=== PATIENT | male | born 1960 | race Two or more races ===

== ENCOUNTER 2020-03-31 18:51 | Emergency (ER) | payer SELFPAY ==
[~2020-03-31] VITALS: Ht 162.6 cm; Wt 68.5 kg
[2020-03-31 19:29] LABS: BASOPHILS % (AUTO) 1 % (0-1); EOSINOPHILS % (AUTO) 1 % (1-7); LYMPHOCYTES % (AUTO) 25 % (22-44); MEAN CORPUSCULAR HEMOGLOBIN 30.5 pg (27.5-34.5); MEAN PLATELET VOLUME 7.9 fL (7.4-10.4); MONOCYTES % (AUTO) 9 % (2-9); NEUTROPHILS % (AUTO) 64 % (42-75); PLATELET COUNT 236 x10^3/uL (130-400); RED BLOOD COUNT 5.08 x10^6/uL (4.38-5.82); RED CELL DISTRIBUTION WIDTH 13.2 % (9.4-14.8)
[2020-03-31 19:31] LABS: MD NO
[2020-03-31 19:39] LABS: ALBUMIN 3.6 g/dL (3.4-5.0); ANION GAP 3 mmol/L (5-15); CALCIUM 8.8 mg/dL (8.5-10.1); CHLORIDE 106 mmol/L (98-107)
[2020-03-31 19:44] LABS: SALICYLATE LEVEL < 1.7 mg/dL (2.8-20.0)
--- NOTE | 2020-03-31 20:06 | NUR ---
PT RESTING IN VIEW OF NURSES STATION WITH NO COMPLAINTS
[2020-03-31 20:16] LABS: AMPHETAMINE SCREEN, URINE Positive (Negative); BARBITURATE SCREEN, URINE Negative (Negative); BENZODIAZEPINE SCREEN, URINE Positive (Negative); CANNABINOID SCREEN, URINE Positive (Negative); COCAINE SCREEN, URINE Negative (Negative); METHADONE SCREEN, URINE Negative (Negative); OPIATE SCREEN, URINE Negative (Negative)
--- NOTE | 2020-03-31 20:58 | NUR ---
PT RESTING IN VIEW OF NURSES STATION, NO COMPLAINTS, AWAITING TELE PSYCH CONSULT
--- NOTE | 2020-03-31 22:29 | NUR ---
PT MOVED TO ROOM 1 AT THIS TIME FOR TELEPSYCH. PT STS WANTS TO SHOWER AND GET NEW CLOTHES HE HAS BEEN WEARING THE SAME OUTFIT FOR 4 DAYS AND HAS BEEN WALKING A LOT. PT CHANGING INTO GOWN WITH ASSIST OF [employer] AT THIS TIME. EDUCATED ON NEED FOR URINE SAMPLE.
--- NOTE | 2020-03-31 22:55 | NUR ---
PT UP TO RESTROOM
--- NOTE | 2020-03-31 23:04 | NUR ---
PT RESTING ON SOPHIA OTERO, NO NEEDS A THIS TIME, BELONGINGS LABELED AND PLACED IN LOCKER
--- NOTE | 2020-03-31 23:29 | NUR ---
PT PROVIDED WITH BLANKET REQ. AWAITING TELEPSYCH
--- NOTE | 2020-04-01 00:19 | NUR ---
SPOKE WITH TELE PSYCH, PT TO BE PLACED ON A HOLD. ERP TO BE UPDATED AT THIS TIME
--- NOTE | 2020-04-01 00:33 | NUR ---
PT PROVIDED WITH SNACKS AND WATER AT REQ
[2020-04-01] MEDS ORDERED: DEPAKOTE PO (00:35)
[2020-04-01] MEDS ORDERED: AMBIEN (00:35)
[2020-04-01] MEDS ORDERED: SEROQUEL PO (00:35)
--- NOTE | 2020-04-01 00:35 | NUR ---
PT REPORTS TAKING SEROQUEL, AMBIEN AND DEPAKOTE BUT STOPPED ABOUT TWO MONTHS AGO. PT DOES NOT KNOW DOSES
[2020-04-01] MEDS ORDERED: DIVALPROEX 500 MG TAB.ER.24H PO ONE (01:25)
[2020-04-01] MEDS ORDERED: HALOPERIDOL 5 MG/ML ONE (01:28)
[2020-04-01] MEDS ORDERED: DIVALPROEX 500 MG TAB.ER.24H ONE (01:28)
[2020-04-01] MEDS ORDERED: LORazepam 2 MG/ML, 1ML ONE (01:29)
[2020-04-01] MEDS ORDERED: NICOTINE 21 MG/24 HR PATCH.TD24 ONE (01:29)
[2020-04-01] MEDS ORDERED: QUETIAPINE 25MG TABLET ONE (01:29)
[2020-04-01] MEDS ORDERED: HALOPERIDOL 5 MG/ML IM ONE (01:30)
[2020-04-01] MEDS ORDERED: NICOTINE 21 MG/24 HR PATCH.TD24 TD ONE (01:30)
[2020-04-01] MEDS ORDERED: QUETIAPINE 25MG TABLET PO ONE (01:30)
[2020-04-01] MEDS ORDERED: LORazepam 2 MG/ML, 1ML IM ONE (01:30)
--- NOTE | 2020-04-01 01:40 | NUR ---
PT MEDICATED PER MAR WITH HOME MEDS
--- NOTE | 2020-04-01 01:42 | NUR ---
PT DOES NOT WANT NICOTINE PATCH AT THIS TIME STS IT GIVES HIM A HEADACHE
--- NOTE | 2020-04-01 02:45 | NUR ---
PT NOW SLEEPING ON GURNEY NO NEEDS AT THIS TIME RESP EVEN AND UNLABORED. SITTER IN VIEW FOR SAFETY.
--- NOTE | 2020-04-01 03:59 | NUR ---
PT RESTING ON [facility] SITTER IN SIGHT NO NEEDS AT THIS TIME
--- NOTE | 2020-04-01 05:00 | NUR ---
PT RESTING ON SOPHIA COPE IN VIEW
--- NOTE | 2020-04-01 06:00 | NUR ---
PT RESTING ON SOPHIA COPE IN VIEW
--- NOTE | 2020-04-01 07:01 | NUR ---
Report from Johana NAVARRO. Pt resting in bed with eyes closed, resp even and unlabored, NADN. Room remains secured, sitter within eyesight of pt, all safety measures observed. Legal Hold visualized in pt chart.
--- NOTE | 2020-04-01 08:13 | NUR ---
Pt continues resting in bed with eyes closed, resp even and unlabored, NADN. Room remains secured, sitter within eyesight of pt, all safety measures observed.
--- NOTE | 2020-04-01 08:30 | NUR ---
pt ate 100% of bk, no change in condition
--- NOTE | 2020-04-01 08:45 | NUR ---
pt ate 100% breakfast. no change in condition
--- NOTE | 2020-04-01 09:50 | NUR ---
Chart faxed to [facility]
--- NOTE | 2020-04-01 10:03 | NUR ---
pt resting in bed, no change
--- NOTE | 2020-04-01 10:04 | NUR ---
pt resting in bed, no change
--- NOTE | 2020-04-01 10:28 | NUR ---
Pt resting in bed, NADN.
--- NOTE | 2020-04-01 10:58 | NUR ---
Meal tray ordered for pt. Pt continues resting in bed with eyes closed, resp even and unlabored, NADN. Room remains secured, sitter within eyesight of pt, all safety measures observed.
--- NOTE | 2020-04-01 12:21 | NUR ---
BREAK RN FOR PRIMARY RN'S COTY. KAIT BOURGEOIS AT BEDSIDE FOR EVALUATION. PT RESTING IN POSITION OF COMFORT. DENIES ANY PAIN AND NEED TO USE RESTROOM. ALL NEEDS MET AND ADDRESSED. FALL PRECAUTIONS IN PLACE. SITTER AT DOOR FOR CONTINUOUS SAFETY OBSERVATION. SAFE AND SECURE ENVIRONMENT PROVIDED. GARAGE DOORS DOWN. ALL BELONINGS REMAIN LOCKED IN CABINET FOR SAFETY.
--- NOTE | 2020-04-01 13:07 | NUR ---
REPORT AND TRANSFER OF CARE BACK TO PRIMARY RN'S YADI AND HI
--- NOTE | 2020-04-01 13:08 | NUR ---
Pt cleared for dc by Gloria KELLOGG. All pt belongings returned to pt. Pt advised that he needs to get dressed for discharge. Pt verbalizes understanding. Awaiting dc paperwork.
[2020-04-01 13:45] VITALS: BP 115/62
== END 2020-04-01 13:53 | disposition home or self-care (01) ==
LOC: ED 04-01 00:56
DX: F32.1 Major depressive disorder, single episode, moderate (principal); I10 Essential (primary) hypertension; F17.210 Nicotine dependence, cigarettes, uncomplicated; Z72.9 Problem related to lifestyle, unspecified; Z91.14 Patient's other noncompliance with medication regimen
CPT/HCPCS: 36415; 80048; 80307; 82040; 85025; 96372; 99284; 99406; J1630; J2060

== ENCOUNTER 2020-11-26 16:17 | Inpatient (IN) | payer MEDICAID ==
[~2020-11-26] VITALS: Ht 165.1 cm; Wt 70.4 kg
[~2020-11-26 16:17] MED LIST: AMBIEN; DEPAKOTE PO; SEROQUEL PO
--- NOTE | 2020-11-26 16:27 | NUR ---
TASK RN: NAVEED EMS FROM [facility] WITH DX OF PNEUMONIA. PT WAS A HOLD IN ED FOR PSYCH PLACEMENT. NO LEGAL HOLD ON CHART. DEVELOPED FEVER TODAY. PT HYPOXIC ON RA AND MOSTLY DROWSY. ARROUSABLE TO VOICE AND LIGHT PHYSICAL STIM. HYPOXIC ON RA, 87% WHICH IMPROVES W 2L O2 BY NC. HX HIV, NON-COMPLIANT WITH RX. NO THRUSH OR NUCCAL RIGIDITY NOTED. GIVEN ROCEPHIN, AZITHROMYCIN, AND BACTRIM BERRY PICKER. BP/SPO2/ECG MONITORING IN PLACE. SINUS TACH ON MONITOR. AFEBRILE UPON ARRIVAL.
[2020-11-26] MEDS ORDERED: SODIUM CHLORIDE FLUSH 10ML SYR IVF ONE (16:30)
[2020-11-26] MEDS ORDERED: methylPREDNISolone SOD SUCC 125 MG/2 ML IVPush ONE (16:34)
[2020-11-26] MEDS ORDERED: methylPREDNISolone SOD SUCC 125 MG/2 ML ONE (16:42)
--- NOTE | 2020-11-26 16:48 | NUR ---
REC REPORT PT SLEEPING AROUSES TO VERBAL IV INFUSING WELL MEDS GIVEN PER ORDERS
--- NOTE | 2020-11-26 16:51 | NUR ---
TASK RN: SECOND PIV ESTABLISHED. LABS/BCX1 DRAWN W PIV START.
[2020-11-26 17:09] LABS: BASOPHILS % (AUTO) 1 % (0-1); EOSINOPHILS % (AUTO) 1 % (1-7); LYMPHOCYTES % (AUTO) 29 % (22-44); MEAN CORPUSCULAR HEMOGLOBIN 30.4 pg (27.5-34.5); MEAN CORPUSCULAR HGB CONC 35.1 g/dL (33.2-36.2); MEAN PLATELET VOLUME 8.4 fL (7.4-10.4); MONOCYTES % (AUTO) 9 % (2-9); NEUTROPHILS % (AUTO) 60 % (42-75); PLATELET COUNT 195 x10^3/uL (130-400); RED BLOOD COUNT 4.51 x10^6/uL (4.38-5.82)
[2020-11-26 17:21] LABS: ALANINE AMINOTRANSFERASE 22 U/L (12-78); ALBUMIN 2.7 g/dL (3.4-5.0); ANION GAP 6 mmol/L (5-15); CALCIUM 8.1 mg/dL (8.5-10.1); CHLORIDE 108 mmol/L (98-107); CREATININE 0.81 mg/dL (0.7-1.3)
[2020-11-26 17:23] LABS: ALKALINE PHOSPHATASE 79 U/L (45-117); BILIRUBIN,TOTAL 0.6 mg/dL (0.2-1.0); TOTAL PROTEIN 7.3 g/dL (6.4-8.2)
[2020-11-26] MEDS ORDERED: ONDANSETRON ODT 4 MG PO PRN (18:30)
[2020-11-26] MEDS ORDERED: ACETAMINOPHEN 325 MG TABLET PO PRN (18:30)
[2020-11-26] MEDS ORDERED: BISACODYL 10 MG SUPP PR PRN (18:30)
[2020-11-26] MEDS ORDERED: POLYETHYLENE GLYCOL 17 GM PACKET PO PRN (18:30)
[2020-11-26 18:41] VITALS: BP_SYST 109; BP_DIAS 7; BP_DIAS 70
[2020-11-26] MEDS: SULFAMETH./TRIMETHOPRIM 20 ML in DEXTROSE 5% 500 ML IV SCH (19:50)
[2020-11-26] MEDS: HEPARIN 5,000 UNITS/ML, 1ML SQ SCH (19:50)
[2020-11-26] MEDS: SODIUM CHLORIDE 0.9% 1,000 ML IV SCH (19:50)
[2020-11-27 00:19] VITALS: BP 105/70
[2020-11-27] MEDS: SULFAMETH./TRIMETHOPRIM 20 ML in DEXTROSE 5% 500 ML IV SCH ×3 (02:17→18:49)
[2020-11-27] MEDS: HEPARIN 5,000 UNITS/ML, 1ML SQ SCH ×3 (04:04→21:21)
[2020-11-27 06:20] LABS: BASOPHILS % (AUTO) 0 % (0-1); EOSINOPHILS % (AUTO) 0 % (1-7); LYMPHOCYTES % (AUTO) 27 % (22-44); MEAN CORPUSCULAR HEMOGLOBIN 30.5 pg (27.5-34.5); MEAN CORPUSCULAR HGB CONC 34.8 g/dL (33.2-36.2); MEAN PLATELET VOLUME 8.5 fL (7.4-10.4); MONOCYTES % (AUTO) 5 % (2-9); NEUTROPHILS % (AUTO) 67 % (42-75); PLATELET COUNT 195 x10^3/uL (130-400); RED BLOOD COUNT 4.29 x10^6/uL (4.38-5.82); RED CELL DISTRIBUTION WIDTH 14.2 % (9.4-14.8)
[2020-11-27 06:23] LABS: ANION GAP 6 mmol/L (5-15); CALCIUM 8.2 mg/dL (8.5-10.1); CHLORIDE 109 mmol/L (98-107); CREATININE 0.91 mg/dL (0.7-1.3)
[2020-11-27 08:04] VITALS: BP 116/76
[2020-11-27] MEDS: SENNA/DOCUSATE TABLET PO SCH (09:37)
[2020-11-27 09:44] LABS: FIO2 ROOM AIR %
[2020-11-27 10:03] LABS: C-REACTIVE PROTEIN, QUANT 2.4 mg/dL (0.02-0.49)
[2020-11-27] MEDS ORDERED: CEFTRIAXONE 1,000 MG in DEXTROSE 5% 50 ML IVPB SCH (13:30)
[2020-11-27 14:10] VITALS: BP 109/65
[2020-11-27] MEDS: CEFTRIAXONE 2 GM in DEXTROSE 5% 50 ML IVPB SCH (14:27)
[2020-11-27] MEDS: SODIUM CHLORIDE 0.9% 1,000 ML IV SCH (14:34)
[2020-11-27] MEDS: AZITHROMYCIN 500 MG in SODIUM CHLORIDE 0.9% 250 ML IV SCH (15:58)
[2020-11-27 19:35] VITALS: BP 100/52
[2020-11-27] MEDS: INSULIN LISPRO 100 UNITS/ML, PEN SQ-INSULIN SCH (21:21)
[2020-11-27] MEDS ORDERED: ALUMINUM/MAG/SIMETHICONE 30 ML UDC PO PRN (21:30)
[2020-11-27] MEDS: ZOLPIDEM 5MG TABLET PO PRN (21:45)
[2020-11-28] MEDS ORDERED: OMEPRAZOLE 20 MG CAPSULE.DR PO ONE (01:00)
[2020-11-28] MEDS: SULFAMETH./TRIMETHOPRIM 20 ML in DEXTROSE 5% 500 ML IV SCH ×4 (01:16→21:04)
[2020-11-28] MEDS: HEPARIN 5,000 UNITS/ML, 1ML SQ SCH ×3 (05:03→22:00)
[2020-11-28 06:29] LABS: BASOPHILS % (AUTO) 1 % (0-1); EOSINOPHILS % (AUTO) 2 % (1-7); LYMPHOCYTES % (AUTO) 43 % (22-44); MEAN CORPUSCULAR HEMOGLOBIN 30.2 pg (27.5-34.5); MEAN CORPUSCULAR HGB CONC 34.1 g/dL (33.2-36.2); MEAN PLATELET VOLUME 7.8 fL (7.4-10.4); MONOCYTES % (AUTO) 11 % (2-9); NEUTROPHILS % (AUTO) 44 % (42-75); PLATELET COUNT 194 x10^3/uL (130-400); RED BLOOD COUNT 4.31 x10^6/uL (4.38-5.82)
[2020-11-28 06:35] LABS: ALANINE AMINOTRANSFERASE 26 U/L (12-78); ALBUMIN 2.6 g/dL (3.4-5.0); ANION GAP 5 mmol/L (5-15); CALCIUM 7.9 mg/dL (8.5-10.1); CHLORIDE 113 mmol/L (98-107)
[2020-11-28 06:37] LABS: ALKALINE PHOSPHATASE 65 U/L (45-117); BILIRUBIN,TOTAL 0.2 mg/dL (0.2-1.0); TOTAL PROTEIN 6.7 g/dL (6.4-8.2)
[2020-11-28] MEDS: INSULIN LISPRO 100 UNITS/ML, PEN SQ-INSULIN SCH ×4 (07:00→20:18)
[2020-11-28 07:33] VITALS: BP 112/67
[2020-11-28] MEDS: SENNA/DOCUSATE TABLET PO SCH (07:46)
[2020-11-28] MEDS: CEFTRIAXONE 2 GM in DEXTROSE 5% 50 ML IVPB SCH (10:06)
[2020-11-28 15:12] VITALS: BP 112/70
[2020-11-28] MEDS: AZITHROMYCIN 500 MG in SODIUM CHLORIDE 0.9% 250 ML IV SCH (16:13)
[2020-11-28] MEDS: SODIUM CHLORIDE 0.9% 1,000 ML IV SCH (16:15)
[2020-11-28 19:55] VITALS: BP 120/81
[2020-11-28] MEDS: DIVALPROEX 500 MG TAB.ER.24H PO SCH (20:41)
[2020-11-28] MEDS: QUETIAPINE 100MG TABLET PO SCH (20:41)
[2020-11-28] MEDS: ZOLPIDEM 5MG TABLET PO PRN (20:44)
[2020-11-29] MEDS: SULFAMETH./TRIMETHOPRIM 20 ML in DEXTROSE 5% 500 ML IV SCH ×4 (03:13→22:26)
[2020-11-29 03:36] VITALS: BP 111/76
[2020-11-29] MEDS: HEPARIN 5,000 UNITS/ML, 1ML SQ SCH ×3 (06:20→20:09)
[2020-11-29] MEDS: OMEPRAZOLE 20 MG CAPSULE.DR PO SCH (06:25)
[2020-11-29] MEDS: INSULIN LISPRO 100 UNITS/ML, PEN SQ-INSULIN SCH ×4 (07:00→20:06)
[2020-11-29 07:23] VITALS: BP 104/70
[2020-11-29] MEDS: SENNA/DOCUSATE TABLET PO SCH (08:48)
[2020-11-29 08:54] LABS: BASOPHILS % (AUTO) 1 % (0-1); EOSINOPHILS % (AUTO) 3 % (1-7); LYMPHOCYTES % (AUTO) 45 % (22-44); MEAN CORPUSCULAR HEMOGLOBIN 30.3 pg (27.5-34.5); MEAN CORPUSCULAR HGB CONC 34.5 g/dL (33.2-36.2); MEAN PLATELET VOLUME 7.9 fL (7.4-10.4); MONOCYTES % (AUTO) 12 % (2-9); NEUTROPHILS % (AUTO) 40 % (42-75); PLATELET COUNT 208 x10^3/uL (130-400); RED BLOOD COUNT 4.47 x10^6/uL (4.38-5.82); RED CELL DISTRIBUTION WIDTH 13.9 % (9.4-14.8)
[2020-11-29 09:05] LABS: ANION GAP 5 mmol/L (5-15); CALCIUM 8.5 mg/dL (8.5-10.1); CHLORIDE 105 mmol/L (98-107); CREATININE 0.94 mg/dL (0.7-1.3)
[2020-11-29] MEDS: CEFTRIAXONE 2 GM in DEXTROSE 5% 50 ML IVPB SCH (09:36)
[2020-11-29 12:58] VITALS: BP 105/66
[2020-11-29] MEDS: AZITHROMYCIN 500 MG in SODIUM CHLORIDE 0.9% 250 ML IV SCH (17:47)
[2020-11-29] MEDS: DIVALPROEX 500 MG TAB.ER.24H PO SCH (20:06)
[2020-11-29] MEDS: QUETIAPINE 100MG TABLET PO SCH (20:06)
[2020-11-29] MEDS: ZOLPIDEM 5MG TABLET PO PRN (20:09)
[2020-11-29 20:39] VITALS: BP 118/68
[2020-11-29] MEDS: SODIUM CHLORIDE 0.9% 1,000 ML IV SCH (22:26)
[2020-11-30] MEDS: SULFAMETH./TRIMETHOPRIM 20 ML in DEXTROSE 5% 500 ML IV SCH ×2 (04:45→10:19)
[2020-11-30] MEDS: HEPARIN 5,000 UNITS/ML, 1ML SQ SCH ×3 (04:46→22:00)
[2020-11-30] MEDS: OMEPRAZOLE 20 MG CAPSULE.DR PO SCH (04:46)
[2020-11-30 06:58] VITALS: BP 110/65
[2020-11-30] MEDS: INSULIN LISPRO 100 UNITS/ML, PEN SQ-INSULIN SCH ×4 (07:34→20:25)
[2020-11-30] MEDS: SENNA/DOCUSATE TABLET PO SCH (08:45)
[2020-11-30] MEDS: CEFTRIAXONE 2 GM in DEXTROSE 5% 50 ML IVPB SCH (08:45)
[2020-11-30 12:04] VITALS: BP 116/68
[2020-11-30] MEDS ORDERED: METF500T17 PO (13:49)
[2020-11-30] MEDS: AZITHROMYCIN 500 MG in SODIUM CHLORIDE 0.9% 250 ML IV SCH (15:56)
[2020-11-30] MEDS ORDERED: CALCIUM CARBONATE 500 MG TAB.CHEW PO PRN (16:00)
[2020-11-30] MEDS: SODIUM CHLORIDE 0.9% 1,000 ML IV SCH (17:40)
[2020-11-30 19:55] VITALS: BP 123/82
[2020-11-30] MEDS: DIVALPROEX 500 MG TAB.ER.24H PO SCH (20:23)
[2020-11-30] MEDS: QUETIAPINE 100MG TABLET PO SCH (20:23)
[2020-11-30] MEDS: ZOLPIDEM 5MG TABLET PO PRN (20:24)
[2020-12-01] MEDS: HEPARIN 5,000 UNITS/ML, 1ML SQ SCH (05:30)
[2020-12-01] MEDS: OMEPRAZOLE 20 MG CAPSULE.DR PO SCH ×2 (05:31→05:43)
[2020-12-01] MEDS: INSULIN LISPRO 100 UNITS/ML, PEN SQ-INSULIN SCH (07:22)
[2020-12-01 08:18] VITALS: BP 106/71
[2020-12-01] MEDS: CEFTRIAXONE 2 GM in DEXTROSE 5% 50 ML IVPB SCH (08:27)
[2020-12-01] MEDS: SENNA/DOCUSATE TABLET PO SCH (08:27)
== END 2020-12-01 09:49 | disposition left against medical advice (07) | DRG 139 ==
LOC: ED 17:20 → 3N 17:35
PROVIDERS: ADMIT Internal Medicine; ATTEND Family Medicine
DX: J18.1 Lobar pneumonia, unspecified organism (principal); R45.851 Suicidal ideations; E11.9 Type 2 diabetes mellitus without complications; F15.10 Other stimulant abuse, uncomplicated; J15.9 Unspecified bacterial pneumonia; Z21 Asymptomatic human immunodeficiency virus [HIV] infection status; F17.210 Nicotine dependence, cigarettes, uncomplicated; F31.0 Bipolar disorder, current episode hypomanic; Z79.4 Long term (current) use of insulin; Z79.899 Other long term (current) drug therapy; Z91.14 Patient's other noncompliance with medication regimen; Z91.19 Patient's noncompliance with other medical treatment and regimen; Z88.6 Allergy status to analgesic agent; K46.9 Unspecified abdominal hernia without obstruction or gangrene; Z20.822 Contact with and (suspected) exposure to COVID-19; Z53.29 Procedure and treatment not carried out because of patient's decision for other reasons
CPT/HCPCS: 36415; 36600; 70450; 71045; 71250; 80048; 80053; 82803; 82962; 83605; 83615; 84145; 85025; 85651; 86140; 86361; 86631; 86632; 86635; 86738; 87040; 87070; 87205; 87449; 87486; 87536; 87581; 87633; 87798; 93005; 96374; 99291; G0378; J0456; J0696; J1644; U0005; J1815; J2930; J7030; J7050; J7060; U0003

== ENCOUNTER 2020-12-03 15:24 | Emergency (ER) | payer MEDICAID ==
[~2020-12-03] VITALS: Ht 162.6 cm; Wt 74.0 kg
[~2020-12-03 15:24] MED LIST changes: +METF500T17 PO
[2020-12-03 15:49] VITALS: BP 151/100
--- NOTE | 2020-12-03 15:52 | NUR ---
NAVEED [facility] for SI. Plan to hang self because people are following him. Hx of HIV, DM and HTN. Recently admitted for PNA after coming to the hospital for SI. Left AMA. Pt talks of plans for Saturday when his HIV med will be available and he has a "ticket home to [place]. Pt turned on TV in the middle of MD Iglesias's eval. NADN. Sitter at bedside. To be seen by psych VALDEZ.
[2020-12-03 16:01] LABS: MICROSCOPIC AUTO
--- NOTE | 2020-12-03 16:02 | NUR ---
TASK RN. PT BIB [facility]. STATES SI WITH A PLAN, STATES WILL HANG HIMSELF. PT IS CURRENTLY CALM AND COOPERATIVE. PT TO RM 38, ROOM SECUED PROPERLY. PT PLACED IN GOWN ONLY AND ALL BELONGINGS LOCKED FOR SAFETY. SITTER AT BEDSIDE. URINE COLLECTED, SENT TO LAB. REPORT TO GUSTAVO NAVARRO.
[2020-12-03 16:14] LABS: AMPHETAMINE SCREEN, URINE Positive (Negative); BARBITURATE SCREEN, URINE Negative (Negative); CANNABINOID SCREEN, URINE Positive (Negative); COCAINE SCREEN, URINE Negative (Negative); METHADONE SCREEN, URINE Negative (Negative); OPIATE SCREEN, URINE Negative (Negative)
[2020-12-03 16:15] LABS: BENZODIAZEPINE SCREEN, URINE Positive (Negative)
[2020-12-03 16:33] LABS: BASOPHILS % (AUTO) 1 % (0-1); EOSINOPHILS % (AUTO) 0 % (1-7); LYMPHOCYTES % (AUTO) 19 % (22-44); MEAN CORPUSCULAR HEMOGLOBIN 30.2 pg (27.5-34.5); MEAN CORPUSCULAR HGB CONC 33.8 g/dL (33.2-36.2); MEAN PLATELET VOLUME 7.9 fL (7.4-10.4); MONOCYTES % (AUTO) 8 % (2-9); NEUTROPHILS % (AUTO) 72 % (42-75); PLATELET COUNT 256 x10^3/uL (130-400); RED BLOOD COUNT 5.02 x10^6/uL (4.38-5.82); RED CELL DISTRIBUTION WIDTH 14.2 % (9.4-14.8)
[2020-12-03 16:43] LABS: ALANINE AMINOTRANSFERASE 45 U/L (12-78); ALBUMIN 3.8 g/dL (3.4-5.0); ANION GAP 6 mmol/L (5-15); CALCIUM 9.3 mg/dL (8.5-10.1); CHLORIDE 105 mmol/L (98-107)
[2020-12-03 16:45] LABS: SALICYLATE LEVEL < 1.7 mg/dL (2.8-20.0)
[2020-12-03 16:46] LABS: ALKALINE PHOSPHATASE 103 U/L (45-117); CREATININE 1.13 mg/dL (0.7-1.3); TOTAL PROTEIN 8.8 g/dL (6.4-8.2)
[2020-12-03] MEDS ORDERED: QUETIAPINE 25MG TABLET PO ONE (19:00)
[2020-12-03] MEDS ORDERED: DIVALPROEX 500 MG TAB.ER.24H PO ONE (19:00)
--- NOTE | 2020-12-03 19:10 | NUR ---
Report and care to MELANIE Mancia.
[2020-12-03] MEDS ORDERED: DIVALPROEX 500 MG TAB.ER.24H ONE (19:15)
[2020-12-03] MEDS ORDERED: QUETIAPINE 25MG TABLET ONE (19:15)
--- NOTE | 2020-12-03 19:15 | NUR ---
RECEIVED REPORT FROM MELANIE CHEN PT MEDICATED AND PROVIDED WITH PHONE AND MANAGER BAR AND GLASSES.
--- NOTE | 2020-12-03 19:26 | NUR ---
SITTER AT BEDSIDE, ROOM SECURED
--- NOTE | 2020-12-03 19:34 | NUR ---
PT WITH TECH, GETTING A SHOWER
--- NOTE | 2020-12-03 20:15 | NUR ---
Patient given discharge instructions and they have confirmed that they understand the instructions. Patient ambulatory with steady gait.
== END 2020-12-03 20:17 | disposition home or self-care (01) ==
LOC: ED 15:37
DX: F33.9 Major depressive disorder, recurrent, unspecified (principal); F17.200 Nicotine dependence, unspecified, uncomplicated; I10 Essential (primary) hypertension; E11.9 Type 2 diabetes mellitus without complications
CPT/HCPCS: 36415; 71045; 80053; 80299; 80307; 80320; 80329; 81001; 85025; 99284; G0480

== ENCOUNTER 2020-12-04 01:35 | Emergency (ER) | payer MEDICAID ==
[~2020-12-04] VITALS: Ht 172.7 cm; Wt 69.0 kg
[2020-12-04] MEDS ORDERED: ACETAMINOPHEN 325 MG TABLET PO ONE (02:00)
--- NOTE | 2020-12-04 02:37 | NUR ---
PT KICKED OUT OF CASINO AND FELL TO FLOOR WHEN SECURITY TOUCHED PT, PT HAS C/O LOWER BACK PAIN. PT HAD NO SIGNS OF PAIN PER [facility]. PT APPEARS INTOXICATED BUT SAYS HE DOES NOT DRINK. SLURRING HIS WORDS BUT A&OX4, BREATHING EVEN AND UNLABORED. NADN. ATTACHED TO MONITORS. VSS PT CHANGED INTO GOWN, BED IN LOW POSTION, RAILS ENGAGED. CALL LIGHT ON LAP.TM
--- NOTE | 2020-12-04 02:48 | NUR ---
PT GIVEN MILK, CEREAL, WATER, PUDDING, CRACKERS AND A SPOON TO SOBER UP. NADN. VSS. TELLEZ
[2020-12-04 03:48] VITALS: BP 128/87
--- NOTE | 2020-12-04 03:48 | NUR ---
PT RESTING IN BED. ATTACHED TO MONITORS. VSS. NADN. PT STILL APPEARS INTOXICATED. SLURRING HIS WORDS. WCTM. BREATHING EVEN AND UNLABORED/
--- NOTE | 2020-12-04 04:54 | NUR ---
pt ambulated down hallway and back to the bathroom with steady gait. pt speech clear and asking for more pudding.
--- NOTE | 2020-12-04 05:05 | NUR ---
PT DEMANDING AMBIEN AND NOT WANTING TO LEAVE. SECURITY CALLED TO HAVE PT DISCHARGED
== END 2020-12-04 05:27 | disposition home or self-care (01) ==
LOC: ED 02:00
DX: S39.012A Strain of muscle, fascia and tendon of lower back, initial encounter (principal); W10.9XXA Fall (on) (from) unspecified stairs and steps, initial encounter; Y93.89 Activity, other specified; Y92.89 Other specified places as the place of occurrence of the external cause; Y99.8 Other external cause status
CPT/HCPCS: 72110; 99283

== ENCOUNTER 2020-12-06 01:19 | Emergency (ER) | payer MEDICAID ==
--- NOTE | 2020-12-06 01:30 | NUR ---
UPDATED ON PLAN OF CARE. NO NOTED ADDITIONAL NEEDS AT THIS TIME. CALL LIGHT WITHIN REACH, BED IN LOWEST LOCKED POSITION, SIDE RAILS X 2 UP. VSS. WILL CONTINUE TO MONITOR.
[2020-12-06 02:24] LABS: BASOPHILS % (AUTO) 1 % (0-1); EOSINOPHILS % (AUTO) 1 % (1-7); LYMPHOCYTES % (AUTO) 32 % (22-44); MEAN CORPUSCULAR HEMOGLOBIN 30.5 pg (27.5-34.5); MEAN CORPUSCULAR HGB CONC 34.2 g/dL (33.2-36.2); MEAN PLATELET VOLUME 7.7 fL (7.4-10.4); MONOCYTES % (AUTO) 13 % (2-9); NEUTROPHILS % (AUTO) 53 % (42-75); PLATELET COUNT 210 x10^3/uL (130-400); RED BLOOD COUNT 4.27 x10^6/uL (4.38-5.82); RED CELL DISTRIBUTION WIDTH 14.5 % (9.4-14.8)
[2020-12-06 02:34] LABS: ALBUMIN 3.1 g/dL (3.4-5.0); ANION GAP 7 mmol/L (5-15); CALCIUM 8.4 mg/dL (8.5-10.1); CHLORIDE 105 mmol/L (98-107); CREATININE 0.94 mg/dL (0.7-1.3)
[2020-12-06 02:38] LABS: TROPONIN I < 0.015 ng/mL (0.000-0.045)
[2020-12-06 02:55] VITALS: BP 90/53
--- NOTE | 2020-12-06 03:15 | NUR ---
PATIENT CLEARED FOR DISCHARGE. NO NOTED ADDITIONAL NEEDS, NO NOTED ADDITIONAL QUESTIONS. PATIENT'S VITAL SIGNS STABLE. PATIENT GIVEN BUS PASS AND SNACKS. AMBULATORY TO DISCHARGE WITHOUT COMPLICATIONS, WITH BELONGINGS.
== END 2020-12-06 03:32 | disposition home or self-care (01) ==
LOC: ED 03:29
DX: R07.89 Other chest pain (principal); F17.210 Nicotine dependence, cigarettes, uncomplicated; R00.0 Tachycardia, unspecified; I10 Essential (primary) hypertension; E11.9 Type 2 diabetes mellitus without complications; Z21 Asymptomatic human immunodeficiency virus [HIV] infection status
CPT/HCPCS: 36415; 71045; 80048; 82040; 83880; 84484; 85025; 93005; 99285; 99406